=== PATIENT | female | born 1970 | race Caucasian/White ===

== ENCOUNTER 2021-04-08 15:31 | Outpatient (CLI) | payer OTHER, SELFPAY ==
--- NOTE | ~2021-04-08 | CT_ITS ---
EXAMINATION: CT sinus wo con DATE: 04/08/2021 15:52 INDICATION: Chronic congestion; chronic sinusitis TECHNIQUE: Computed tomography (CT) of the paranasal sinuses was performed without contrast. Iterativ e reconstruction technique was employed. Exam dose: 305.77 mGy-cm total exam DLP. COMPARISON: None FINDINGS: There is minimal rightward deviation of the nasal septum. There is moderate soft tissue swelling of the nasal turbinates. The osteomeatal units are patent. There is minimal mucoperiosteal thickening of the right lower maxillary sinus. There is prominent mucoperiosteal thickening of the right sphenoid sinus. The paranasal sinuses are otherwise normally developed and aerated. There is opacification of a minority of right mastoid air cells posterosuperiorly. The mastoid air c ells are otherwise normally developed and aerated. IMPRESSION: Prominent mucoperiosteal thickening of the right sphenoid sinus and minimal mucoperioste al thickening of the right maxillary sinus Focal posterosuperior right mastoid air cell opacification Reviewed, dictated and finalized at [facility]. Reviewed, dictated and finalized at [facility]. [facility] [employer] [employer] IMPRESSION: Prominent mucoperiosteal thickening of the right sphenoid sinus an d minimal mucoperiosteal thickening of the right maxillary sinus Focal posterosuperior right mastoid air cell opacification
== END 2021-04-08 15:32 | disposition home or self-care (01) ==
LOC: ANHIMG 15:35
PROVIDERS: PCP Physician Assistant; Visit Provider Otolaryngology
DX: J32.9 Chronic sinusitis, unspecified (principal)
CPT/HCPCS: 70486